=== PATIENT | female | born 1945 | race Caucasian/White ===

== ENCOUNTER → 2019-03-11 | Outpatient (CLI) | payer OTHER ==
[~2019-03-11] MED LIST: BACTRIM DS TAB1 EACH PO; CEPHALEXIN 500500 M3 PO; CLEOCIN HCL150 MG PO; COZAAR 50 MG TA50 M2 PO; LEVOTHYROXINE 0.1 MG PO
--- NOTE | 2019-03-11 13:10 | EXE ---
[facility] [place] [address] STRESS ECHOCARDIOGRAM Name: EDWIGE PABON Room #: REG [facility]#: [id number] ������������� Admission: 03/11/19 ������������� Attend Phys: Benjamin Hoffman Discharge: ��� ������������� ��� Date of : 47 Date of Service: 03/11/19 1310 �� Report #: [id number] �������� ��������������������������������������������[id number] THIS REPORT FOR: //name// APPROVED REPORT Study performed: 03/11/2019 10:01:03 Exam: Stress Echocardiogram Indication: SVT Patient Location: Out-Patient Stress Nurse: Swati Pollard RN Status: routine Ht: 5 ft 3 in HR: 61 bpm BP: 164/82 mmHg Rhythm: NSR Medical History Medications: LISTED ON WORKSHEET Allergies: LISTED ON WRKSHT Cardiac Risk Factors: HTN Procedure The patient underwent an Exercise Stress Test using the Tommie Protocol. Blood pressure, heart rate, and EKG were monitored. An Echocardiogram was performed by aircraft engine technician in four stages in quad fashion. At peak stress, four selected images were obtained and placed side by side with resting images for comparison. Stress Test Details Stress Test: Exercise stress testing was performed using a Tommie protocol. HR Resting HR: 61 bpm Max Heart Rate (APMHR): 148 bpm Max HR Achieved: 162 bpm Target HR (85% APMHR): 125 bpm % of APMHR: 109 Recovery HR: 78 bpm HR response to stress: Normal HR response to stress BP Resting BP: 164/82 mmHg Max BP: 178/80 mmHg Recovery BP: 152/70 mmHg BP response to stress: Normal blood pressure response to stress. [facility] [address] [place] [address] STRESS ECHOCARDIOGRAM Name: EDWIGE PABON Room #: REG [facility]#: [id number] ������������� Admission: 03/11/19 ������������� Attend Phys: Benjamin [facility] Discharge: ��� ������������� ��� Date of : 47 Date of Service: 03/11/19 1310 �� Report #: [id number] �������� ��������������������������������������������[id number] ECG Resting ECG: Sinus Rhythm Stress ECG: Sinus Tachycardia ST Change: Normal Maximum ST Deviation: 0 mm Arrhythmia: None Recovery ECG: Sinus Rhythm Recovery ST Change: Normal Recovery ST Deviation: 0 mm Recovery Arrhythmia: None Clinical Reason for Termination: Completed protocol Stress Symptoms: Leg Fatigue Exercise duration: 7 min 34 sec Highest Stage Achieved: Stage 3: 3.4 mph at 14% grade. Exercise capacity: 10.10 METs Angina Score: None Stress ECG Conclusion Clinical: Non-ischemic ECG: Non-ischemic Campos Treadmill Score is 7.0 which is Low risk. Pre-Stress Echo The resting Echocardiogram showed normal left ventricular contractility with an estimated Ejection Fraction of about 60%. Moderate MR, mild to moderate TR, trivial AI. Post-Stress Echo The stress Echocardiogram showed normal left ventricular contractility with an estimated Ejection Fraction of about 65-70%. Normal augmentation of wall motion in all segments on post stress images. Clinical Normal augmentation of myocardial wall segments using a 17 segment model. Conclusion Clinical Response: Non-ischemic Exercise Capacity: Average Stress ECG Response: Non-ischemic Stress Echo Images: Non-ischemic The left ventricle is normal in size and wall thickness in both the rest and stress images. [facility] [employer] [place] [address] STRESS ECHOCARDIOGRAM Name: EDWIGE PABON Room #: REG [facility]#: [id number] ������������� Admission: 03/11/19 ������������� Attend Phys: Benjamin Hoffman Discharge: ��� ������������� ��� Date of : 47 Date of Service: 03/11/191309 �� Report #: [id number] �������� ��������������������������������������������[id number] Normal stress echocardiogram with maximal exercise stress. Other Information Study Quality: Adequate <Conclusion> The left ventricle is normal in size and wall thickness in both the rest and stress images. Normal stress echocardiogram with maximal exercise stress. ��������������������������������������������� <ELECTRONICALLY SIGNED> ���������������������������������������� By: Kiko Major MD, FACC ��������������������������������������������� 03/11/191309 09 09 Kiko Major MD, FACC /INF
== END ==
LOC: CV 09:43
DX: I47.1 Supraventricular tachycardia (principal); I10 Essential (primary) hypertension; Z88.8 Allergy status to other drugs, medicaments and biological substances; Z91.040 Latex allergy status

== ENCOUNTER → 2021-12-07 | Outpatient (CLI) | payer OTHER | LOC: SJCVC 13:43 | PROVIDERS: ATTEND Internal Medicine Cardiovascular Disease | DX: R94.31 Abnormal electrocardiogram [ECG] [EKG] (principal); I47.1 Supraventricular tachycardia; R93.1 Abnormal findings on diagnostic imaging of heart and coronary circulation; E78.00 Pure hypercholesterolemia, unspecified; G47.33 Obstructive sleep apnea (adult) (pediatric); E78.5 Hyperlipidemia, unspecified; I10 Essential (primary) hypertension; K21.9 Gastro-esophageal reflux disease without esophagitis; Z88.8 Allergy status to other drugs, medicaments and biological substances; Z91.040 Latex allergy status; Z79.82 Long term (current) use of aspirin; Z79.899 Other long term (current) drug therapy; Z72.89 Other problems related to lifestyle ==